=== PATIENT | female | born 1975 | race Caucasian/White ===

== ENCOUNTER 2017-11-22 09:45 | Outpatient (CLI) | payer MEDICAID | END 2017-11-22 09:46 | disposition home or self-care (01) | LOC: BICMAMMO 09:45 | PROVIDERS: ATTEND Student in an Organized Health Care Education/Training Program | DX: Z12.31 Encounter for screening mammogram for malignant neoplasm of breast (principal); R92.1 Mammographic calcification found on diagnostic imaging of breast; Z98.82 Breast implant status | CPT/HCPCS: 77067 ==